=== PATIENT | male | born 1980 | race Asian ===

== ENCOUNTER 2016-08-28 16:56 | Emergency (ER) | payer OTHER ==
[~2016-08-28] VITALS: Ht 177.8 cm; Wt 86.2 kg
--- NOTE | 2016-08-28 17:37 | ED GENERAL ADULT ---
History of Present Illness General Chief Complaint: Headache Stated Complaint: BAD HEAD ACHE AND BLURR VISION Source: patient, family Exam Limitations: no limitations Vital Signs & Intake/Output Vital Signs & Intake/Output Vital Signs Date Time Temp Pulse Resp B/P Pulse O2 O2 Flow FiO2 Ox Delivery Rate 08/28 2248 96.7 65 16 107/67 97 Room Air 08/28 1801 97.6 08/28 1702 97.6 79 16 139/93 98 Room Air Allergies Coded Allergies: ampicillin (RASH 08/28/16) Reconcile Medications Meclizine HCl 25 MG TABLET 1 TAB PO TIDPRN vertigo Triage Note: PT STATES HE HAS A VERY BAD HAMLIN AND IT IS CAUSING HIM TO HAVE BLURRY VISION. 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 PT REPORTS PAIN ON THE RIGHT SIDE OF HIS FACE. PT STATES HE HAS NO PERIPHERAL VISION FROM HIS LEFT EYE. Triage Nurses Notes Reviewed? yes Onset: Abrupt Duration: day(s): (2), constant, continues in ED Timing: recent history Injury Environment: home No Modifying Factors: none HPI: 36-year-old male comes into emergency room for further evaluation of multiple complaints. Patient reports that he has been experiencing dizziness yesterday. Patient reports that it felt like there was an earthquake occurring yesterday. Patient reports that today he started to experience a headache. 2 hours prior to arrival. Patient denies any chest pain or shortness of breath. Denies any drug use at all. Denies any passing out. Patient reports at the moment his symptoms are okay and his headache is very mild. Denies any other associated symptoms at this time. (NITA MO) Past History Travel History Traveled to [place] past 21 day No Medical History Any Pertinent Medical History? see below for history Neurological: NONE EENT: NONE Cardiovascular: NONE Respiratory: NONE Gastrointestinal: NONE Hepatic: NONE Renal: NONE Musculoskeletal: NONE Psychiatric: NONE Endocrine: NONE Blood Disorders: NONE Cancer(s): NONE RETAIL STORE ASSOCIATE/Reproductive: NONE Surgical History Surgical History: N Psychosocial History What is your primary language Bengali Tobacco Use: Never used ETOH Use: denies use Illicit Drug Use: denies illicit drug use Family History Hx Contributory? No (NITA MO) Review of Systems Review of Systems Constitutional: Reports: no symptoms. EENTM: Reports: see HPI. Respiratory: Reports: no symptoms. Cardiovascular: Reports: no symptoms. GI: Reports: no symptoms. Genitourinary: Reports: no symptoms. Musculoskeletal: Reports: no symptoms. Skin: Reports: no symptoms. Neurological/Psychological: Reports: see HPI. Hematologic/Endocrine: Reports: no symptoms. Immunologic/Allergic: Reports: no symptoms. All Other Systems: Reviewed and Negative (NITA MO) Physical Exam Physical Exam General Appearance: well developed/nourished, no apparent distress, alert Head: atraumatic, normal appearance Eyes: Bilateral: normal appearance, PERRL, EOMI. Ears, Nose, Throat: normal pharynx, normal ENT inspection, hearing grossly normal Neck: normal inspection, supple, full range of motion Respiratory: normal breath sounds, no respiratory distress Cardiovascular: regular rate/rhythm Peripheral Pulses: 2+ radial (R) Back: normal inspection Extremities: normal inspection, normal range of motion Neurologic/Psych: awake, alert, oriented x 3, normal gait, normal mood/affect Skin: intact, normal color Core Measures ACS in differential dx? No CVA/TIA Diagnosis: No Severe Sepsis Present: No Septic Shock Present: No (NITA MO) Progress Differential Diagnoses I considered the following diagnoses in my evaluation of the patient: Pericarditis, acute IN, vertigo, migraine, cluster headache, tension headache, benign positional vertigo, labyrinthitis, sinusitis, subarachnoid hemorrhage, meningitis, aortic dissection, pulmonary embolism, Plan of Care: Orders Procedure Date/time Status TROPONIN LEVEL 08/28 2155 Complete EKG 08/28 215 Active Telemetry/Director Of Safety And Security 08/28 1803 Active TROPONIN LEVEL 08/28 1736 Complete COMPREHENSIVE METABOLIC PANEL 08/28 1736 Complete CBC WITHOUT DIFFERENTIAL 08/28 1736 Complete EKG 08/28 1736 Active Laboratory Tests 08/28/16 2159: Troponin I < 0.01 08/28/16 1754: Anion Gap 12, Estimated GFR > 60, BUN/Creatinine Ratio 14.0, Glucose 96, Calcium 9.3, Total Bilirubin 0.4, AST 16 L, ALT 34, Alkaline Phosphatase 124, Troponin I < 0.01, Total Protein 7.6, Albumin 4.5, Globulin 3.1, Albumin/Globulin Ratio 1.5, CBC w Diff NO MAN DIFF REQ, RBC 5.24, MCV 84.9, MCH 28.2, RDW 13.0, MPV 8.2 , Gran % 73.0, Lymphocytes % 18.8 L, Monocytes % 5.6, Eosinophils % 1.9, Basophils % 0.7, Absolute Granulocytes 7.8 H, Absolute Lymphocytes 2.0, Absolute Monocytes 0.6, Absolute Eosinophils 0.2, Absolute Basophils 0.1, PUBS MCHC 33.2 Diagnostic Imaging: Viewed by Me: Radiology Read, CT Scan. Discussed w/RAD: Radiology Read, CT Scan. Radiology Impression: SERVICE DATE: 08/28/16 EXAM TYPE: CAT - CT HEAD WO IV CONTRAST EXAMINATION: CT HEAD WITHOUT CONTRAST CLINICAL INFORMATION: Dizziness. Headache. COMPARISON: No relevant prior studies are available for comparison. TECHNIQUE: Contiguous axial imaging was performed from the skull base to vertex without intravenous administration of contrast. DLP: 600.71 mGy- cm. FINDINGS: There is no evidence of acute intracranial hemorrhage or territorial infarction. No abnormal mass effect or midline shift is seen. Hagan to white matter differentiation is well preserved. No extra-axial fluid collections are identified. The ventricles are normal in size. There is no abnormal attenuation within the brain parenchyma. The osseous structures and soft tissues are normal. The mastoid air cells and visualized portions of the paranasal sinuses are well aerated. IMPRESSION: No acute intracranial pathology. DICTATED BY: BERYL WERNER MD DATE/TIME DICTATED:08/28/161833 SUPPLY CHAIN DEVELOPMENT MANAGER:SAHARA DATE/TIME TRANSCRIBED:08/28/161833 Initial ED EKG: normal intervals, normal p-waves, normal sinus rhythm, ST elevation (I,II,V4-V6), ekg reviewed with dr fried Repeat EKG: changed (st eleavtion improved in V5) Comments: 08/28/2016 11:14:53 PM Patient clinically looks well. Patient is asymptomatic upon reevaluation. Patient has not had any chest pain or shortness of breath despite abnormal EKG. EKG was reviewed by Dr. fam. Patient will follow-up with him in the office as an outpatient. Patient was seen and evaluated by Dr. Fried. Clinically looks well upon discharge. In no apparent distress. Patient understands and agrees with plan of care. 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 Call number on Tuesday. Return if any other concerns worsening symptoms. Take meclizine as prescribed. Please go over all results of today's visit with your primary care doctor. Contact your primary care doctor to let them know you were here in the emergency room. There may be nonspecific findings which may not be related to your visit today here in the emergency room but may require further evaluation and chronic monitoring by your primary care doctor. If you had a laceration today the chance of foreign body always remains. You should follow-up with your primary care doctor for recheck in 3-5 days for a wound check. If you had an x-ray done there is a chance that a fracture could have been missed on initial read and you should follow-up with your primary care doctor for repeat x-rays if symptoms persist. If your blood pressure was elevated here in the emergency room please have rechecked by her primary care doctor within the next 48 hours by your primary care doctor. If you were prescribed a narcotic here in the emergency room or any type of controlled substances you're not allowed to drive while taking this medication or operate any type of heavy machinery. Narcotics can make you feel lightheaded dizziness nausea and can cause constipation. You may need to case picker a stool softener. Thank you for choosing [facility] emergency room. Please return to the emergency room immediately if you have any other concerns worsening of symptoms. Departure Forms: Customer Survey General Discharge Information Prescriptions: Current Visit Scripts Meclizine HCl 1 TAB PO TIDPRN #30 TAB (NITA MO) PA/TERMINAL WORKER Co-Sign Statement Statement: ED Attending supervision documentation- [] I saw and evaluated the patient. I have also reviewed all the pertinent lab results and diagnostic results. I agree with the findings and the plan of care as documented in the PA's/TERMINAL WORKER's documentation. [X] I have reviewed the ED Record and agree with the PA's/TERMINAL WORKER's documentation. [] Additions or exceptions (if any) to the PAs/TERMINAL WORKER's note and plan are summarized below: [] (JULIO MD,NAZARIO) Critical Care Note Critical Care Note Critical Care Time: non-applicable (NITA MO)
[2016-08-28 18:05] LABS: ABSOLUTE BASOPHIL COUNT 0.1 /CUMM (0.0-0.2); ABSOLUTE EOSINOPHIL COUNT 0.2 /CUMM (0.0-0.7); ABSOLUTE GRANULOCYTE CT 7.8 /CUMM (1.4-6.5); ABSOLUTE MONOCYTE COUNT 0.6 /CUMM (0.10-0.60); BASOPHIL % 0.7 % (0.0-2.0); EOSINOPHIL % 1.9 % (0-5); HEMATOCRIT 44.5 % (42-52); MEAN CORPUSCULAR HGB 28.2 PG (27.0-31.0); MEAN CORPUSCULAR HGB CONC 33.2 G/DL (33.0-37.0); MEAN CORPUSCULAR VOLUME 84.9 FL (80.0-94.0); MEAN PLATELET VOLUME 8.2 FL (7.4-10.4); PLATELET COUNT 250 /CUMM (130-400); RED BLOOD CELL CT 5.24 /CUMM (4.70-6.10); WHITE BLOOD CELL COUNT 10.6 /CUMM (4.8-10.8)
--- NOTE | 2016-08-28 18:39 | CT SCAN REPORT ---
EXAMINATION: CT HEAD WITHOUT CONTRAST CLINICAL INFORMATION: Dizziness. Headache. COMPARISON: No relevant prior studies are available for comparison. TECHNIQUE: Contiguous axial imaging was performed from the skull base to vertex without intravenous administration of contrast. DLP: 600.71 mGy-cm. FINDINGS: There is no evidence of acute intracranial hemorrhage or territorial infarction. No abnormal mass effect or midline shift is seen. Hagan to white matter differentiation is well preserved. No extra-axial fluid collections are identified. The ventricles are normal in size. There is no abnormal attenuation within the brain parenchyma. The osseous structures and soft tissues are normal. The mastoid air cells and visualized portions of the paranasal sinuses are well aerated. IMPRESSION: No acute intracranial pathology.
--- NOTE | 2016-08-28 19:27 | RADIOLOGY REPORT ---
EXAMINATION: XR CHEST CLINICAL INFORMATION: Chest pain. COMPARISON: No relevant prior studies are available for comparison. TECHNIQUE: 2 views of the chest were obtained. FINDINGS: The lungs are clear. The cardiomediastinal silhouette is normal in size. There is no pleural effusion or pneumothorax. No abnormalities are noted in the visualized bones. IMPRESSION: No acute cardiopulmonary disease.
[2016-08-28] MEDS ORDERED: MECLIZINE HCL25 MG PO (22:45)
[2016-08-28 22:48] VITALS: BP 107/67
== END 2016-08-28 22:54 ==
LOC: ERH 16:56
PROVIDERS: Physician Assistant Medical
DX: R42 Dizziness and giddiness (principal); R94.31 Abnormal electrocardiogram [ECG] [EKG]
CPT/HCPCS: 93005; 93010